=== PATIENT | female | born 1955 | race Caucasian/White ===

== ENCOUNTER 2025-03-08 14:38 | Observation (INO) ==
--- NOTE | 2025-03-08 15:05 | Emergency Department Note ---
Impression & Plan Unstable angina, Abnormal stress electrocardiogram test using treadmill, Hypertriglyceridemia, Hyperlipidemia ED Provider Note NAME: CHERRIE WONG AGE: 69 SEX: F : 1955 ARRIVES VIA: Walk-In INFORMANT: Patient, ED PROVIDER(S): Brian Drake DO CHIEF COMPLAINT: chest pain HPI: This is a 69-year-old female with the PMHx of recent chest pain presenting to [facility] for further evaluation of abnormal stress test. Patient is accompanied by who provide additional history. Patient had a stress test today with the [facility] cardiology that was abnormal. She was sent directly to the emergency department. Patient complains of a few weeks of left-sided chest pain. She reports associated with mild nausea and gain. She states this is mild shortness of breath as well. She states this feels like a elephant sitting on her chest. Appears the patient took approximately 11 minutes to resolution of her symptoms as well as EKG changes during stress test today. Patient is planning for cardiac catheterization. They deny fever or chills. No cough or congestion. Denies chest palpitations. They deny abdominal pain and vomiting. No urinary complaints. No recent changes in bowel movements. Patient denies recent changes in medications or OTC supplements. with patient does have significant family history for cardiovascular disease. She has a did have a prior cardiac catheterization approximately 30 years ago. This was reported as normal. Patient offers no other complaints, today. ADDITIONAL HISTORY OBTAINED: Per HPI Chronic Medical/Social Conditions Affecting Care: Per HPI PAST MEDICAL HISTORY: See Below PAST SURGICAL HISTORY: See Below FAMILY HISTORY: See Below SOCIAL HISTORY: See Below HOME MEDICATIONS: See Below ALLERGIES: See Below VITALS: See Below PHYSICAL EXAMINATION: GENERAL: Sitting up in bed, alert, well appearing, well nourished, no distress, non-toxic EYE EXAM: normal conjunctiva. PERRL and EOM's grossly intact. OROPHARYNX: no exudate, no erythema, lips, buccal mucosa, and tongue normal and mucous membranes are moist NECK: supple, no nuchal rigidity, no adenopathy, non-tender LUNGS: Clear to auscultation. Normal chest wall mechanics HEART: no murmurs, regular rate, regular rhythm, 2+ distal pulses in 4/4 extremities, warm and well perfused ABDOMEN: abdomen soft, non-tender, no masses, no rebound or guarding. BACK: Back is symmetrical on inspection and there is no deformity, no midline tenderness, no CVA tenderness. SKIN: no rashes and no bruising UPPER EXTREMITIES: upper extremities are grossly normal. LOWER EXTREMITIES: No pitting edema. NEURO EXAM: Normal sensorium, GCS 15, normal speech, no gross weakness of arms, no gross weakness of legs. MEDICAL DECISION MAKING: Differential diagnoses includes but not limited to ACS, stable vs unstable angina, dysrhythmia, viral URI, pneumonia, pericarditis, pneumothorax, costochondritis, MSK strain, PE, hypertensive emergency, psychological causes, esophageal reflux, gastritis In summary, this is a 69 year old female who presented with chest pain. Differential as above. Nursing notes and pertinent past medical records reviewed. Vital signs reviewed and the patient is afebrile hemodynamically stable. History and presentation revealed ongoing chest pain for the last 4 weeks. She does have exertional symptoms. Associated with mild dyspnea as well as nausea. Extensive family history of cardiac disease. I reviewed documentation from today's cardiology visit. It appears the patient had an abnormal stress test. Patient had significant depressions and ST segment changes to suggest lateral ischemia. Patient is planned for cardiac catheterization today with Dr. Montalvo but insurance declined. Physical examination revealed as above. As a result of my initial evaluation, we will plan to initiate lab work as well as a chest x-ray. Plan for ASA load. Will provide sublingual nitroglycerin for pain control. Diagnostics interpreted by me include EKG and cardiac monitoring as listed below: -Cardiac Monitoring: An order was placed for continuous cardiac monitoring. The monitor shows a rate of 40-70s with regular rhythm. -ECG: EKG independently interpreted by me reveals normal sinus rhythm at a ventricular rate of [address] segment changes to suggest STEMI. There is an incomplete right bundle branch block present. QTc is 431 ms. Patient completed laboratory studies and imaging. Patient was discussed with cardiology [facility] cloth sponger. Per Dr. Barth, classic EKG changes and chest pain during stress test. Unfortunately, the insurance company declined catheterization. Plan for admission for intractable. No heparin bolus or gtt needed. The patient was managed with ASA load. SL NTG used for chest pain but she became transiently hypotensive and symptomatic. Chest pain did improve. Will hold on further SL NTG. IVFR ordered. BP improved rapidly. No significant leukocytosis or anemia. Patient does have mild hypokalemia. This was replenished by oral potassium chloride. Lipid panel shows hypertriglyceridemia as well as high cholesterol. Patient would likely benefit from statin initiation. CXR independently interpreted by me reveals no evidence of focal consolidation to suggest pna. No large pneumothorax or pleural effusion. Troponin and EKG are reassuring. Ultimately, the decision was made to admit the patient for ACS. It was recommended to admit this patient at 1549. I discussed the case with the hospitalist service via telephone/Tiger[employer] and they are agreeable to admit the patient to their services. The patient was taken directly to cardiac catheterization after ?insurance approval. Further care deferred to cardiology and medicine teams. Based on the above, including the patient's age, coexisting illnesses, labs, imaging, and exam findings the decision to treat as an inpatient. I discussed the patient with the hospitalist team who recommended admission to their services. They received the medications, treatments, interventions indicated above and their condition remained guarded. I discussed my findings with the patient and their family and they understand and agree with the treatment plan. All patient / family questions were answered to their satisfaction. Consults/Care Managements Discussions: Per [facility] ER treatment provided: See above Procedures:none Critical Care: None The chart was completed utilizing [employer] Speech voice recognition software. Grammatical errors, random word insertions, pronoun errors, and incomplete sentences are an occasional consequence of this system due to software limitations, ambient noise, and hardware issues. Any formal questions or concerns about the content, text, or information contained within the body of this dictation should be directly addressed to the physician for clarification. Past Med/Surg History Problem List (Updated 03/08/25 @ 17:43 by Brian Drake DO) Hyperlipidemia (Acute) Hypertriglyceridemia (Acute) Dyslipidemia Unstable angina (Acute) Abnormal stress electrocardiogram test using treadmill (Acute) Chest pressure Surgical History S/P hysterectomy S/P wisdom tooth extraction Family History Father Stroke Hypertension Mother Diabetes Brother Diabetes Denies family history of Ovarian cancer Prostate cancer Myocardial infarction Breast cancer Colorectal cancer Social History Smoking Status: Never smoker Second Hand Exposure: No; Do You Dip or Chew Tobacco: No; Hx Alcohol Use: Yes Alcohol type: wine and hard liquor Alcohol Intake Frequency: 4 or More x per/Week Hx Substance Use: No Preferred Language: Pashto Communication Ability: Effective Visual Impairment: No Limitations Hearing Ability: Hard of Hearing Medical Voucher Clerk Required: No Beliefs That Will Affect Care: None marital status: Current Living Situation: Spouse current occupational status: retired Feels Safe at Home: Yes Childhood Exposure to Second-Hand Smoke: No Diet: gluten free and regular caffeine: Yes Dental Care, Regularly: Yes Physical Activity Frequency: 5-6 Times per Week Seatbelt Use: always Sunscreen Use: No Assistive Devices: None Allergies Allergies Allergy/AdvReac Type Severity Reaction Status Date / Time Penicillins Allergy Hives Verified 03/08/25 16:40 Home Meds Home Medications Medication Instructions Recorded Confirmed No Known Home Medications 09/11/24 03/08/25 Previous Rx's Medication Instructions Recorded amlodipine 5 mg tablet 5 mg PO QAM #30 tabs 03/08/25 aspirin 81 mg tablet,delayed 81 mg PO QAM #30 tabs 03/08/25 release atorvastatin 20 mg tablet 20 mg PO QAM #30 tabs 03/08/25 Results & Data (ED) Vital Signs Vital Signs - 24 hr 03/08/25 14:47 03/08/25 15:16 03/08/25 15:32 Temperature 36.7 C Temperature Source Oral Pulse Rate 73 72 Pulse Rate [Apical] 47 L Pulse Rhythm [Apical] Pulse Strength [Apical] Respiratory Rate 18 18 Respiratory Effort / Characteristics Non-Labored Spontaneous Non-Labored Spontaneous Respiratory Depth Normal Normal Respiratory Pattern Regular Blood Pressure 153/76 H Blood Pressure [Left Arm] Blood Pressure [Right Arm] 64/34 L Blood Pressure Mean 101 Blood Pressure Mean [Left Arm] Blood Pressure Mean [Right Arm] 44 Blood Pressure Position [Left Arm] Pulse Oximetry 97 95 Oxygen Delivery Method Room Air Room Air Sepsis Recent Fever Within 48 Hours No Sepsis New/Unexplained Change in Mental Status N/A Sepsis Action Taken by Nursing No Action Required 03/08/25 15:33 03/08/25 15:36 03/08/25 15:41 Temperature Temperature Source Pulse Rate Pulse Rate [Apical] 58 L 62 66 Pulse Rhythm [Apical] Pulse Strength [Apical] Respiratory Rate 18 18 18 Respiratory Effort / Characteristics Non-Labored Spontaneous Non-Labored Spontaneous Non-Labored Spontaneous Respiratory Depth Normal Normal Normal Respiratory Pattern Regular Regular Blood Pressure Blood Pressure [Left Arm] 72/48 L 89/62 L 114/71 Blood Pressure [Right Arm] Blood Pressure Mean Blood Pressure Mean [Left Arm] 56 71 85 Blood Pressure Mean [Right Arm] Blood Pressure Position [Left Arm] Sitting Pulse Oximetry 96 95 95 Oxygen Delivery Method Room Air Room Air Room Air Sepsis Recent Fever Within 48 Hours Sepsis New/Unexplained Change in Mental Status Sepsis Action Taken by Nursing 03/08/25 16:10 03/08/25 16:36 Temperature 36.6 C Temperature Source Oral Pulse Rate 80 Pulse Rate [Apical] 76 Pulse Rhythm [Apical] Regular Pulse Strength [Apical] Normal Respiratory Rate 24 18 Respiratory Effort / Characteristics Non-Labored Spontaneous Respiratory Depth Normal Respiratory Pattern Regular Blood Pressure 150/113 H Blood Pressure [Left Arm] 145/78 H Blood Pressure [Right Arm] Blood Pressure Mean Blood Pressure Mean [Left Arm] 100 Blood Pressure Mean [Right Arm] Blood Pressure Position [Left Arm] Lying Pulse Oximetry 98 97 Oxygen Delivery Method Room Air Room Air Sepsis Recent Fever Within 48 Hours Sepsis New/Unexplained Change in Mental Status Sepsis Action Taken by Nursing Laboratory Data 03/08/25 15:06 03/08/25 15:06 Lab Results 03/08/25 Range/Units 15:06 WBC 9.22 (4.8-10.8) K/ul RBC 5.21 (4.20-5.40) M/uL Hgb 14.4 (12.0-16.0) g/dl Hct 43.2 (37.0-47.0) % MCV 82.9 (80.0-100.0) fL MCH 27.6 (25.0-34.0) pg MCHC 33.3 (32.0-36.0) g/dL RDW Std Deviation 37.0 (36.4-46.3) fL RDW Coeff of Mariama 12.2 (11.5-14.5) % Plt Count 295 (130-400) K/uL MPV 9.5 (9.4-12.4) fL Immature Gran % (Auto) 0.5 % Neut % (Auto) 51.2 % Lymph % (Auto) 38.3 % Payette % (Auto) 7.3 % Eos % (Auto) 2.0 % Baso % (Auto) 0.7 % Neut # (Auto) 4.73 (1.40-6.50) K/uL Lymph # (Auto) 3.53 H (1.20-3.40) K/uL Payette # (Auto) 0.67 H (0.11-0.59) K/uL Eos # (Auto) 0.18 (0.00-0.50) K/uL Baso # (Auto) 0.06 (0.00-0.20) K/uL Immature Gran # (Auto) 0.05 (0.01-0.20) K/uL PT 10.3 (9.0-12.0) Seconds INR 0.9 (0.9-1.1) APTT 26 (21-31) Seconds PTT Ratio 1.0 Sodium 138 (136-145) mmol/L Potassium 3.3 L (3.5-5.1) mmol/L Chloride 100 (98-107) mmol/L Carbon Dioxide 30 (21-32) mmol/L Anion Gap 8 (3-11) BUN 14 (6-23) mg/dl Creatinine 0.77 (0.6-1.2) mg/dl Est Cr Clr Drug Dosing 72.2 ml/min eGFR 82.93 BUN/Creatinine Ratio 18.2 (10-20) Glucose 115 H (70-99(Fasting)) mg/dl Calcium 9.5 (8.6-10.3) mg/dl Total Bilirubin 0.5 (0.2-1.0) mg/dl AST 22 (13-39) U/L ALT 22 (7-52) U/L Alkaline Phosphatase 93 (34-104) U/L Troponin I High Sens 9.1 (0-14) pg/ml Total Protein 7.7 (6.0-8.3) gm/dl Albumin 4.6 (3.4-5.0) gm/dl Globulin 3.1 (2.5-4.0) gm/dl Albumin/Globulin Ratio 1.5 (0.9-2) Triglycerides 304 H (0-150) mg/dl Cholesterol 266 H (0-200) mg/dl LDL Cholesterol Direct 155 mg/dl LDL Cholesterol, Calc 149 mg/dl VLDL Cholesterol, Calc 61 H (0-30) mg/dl HDL Cholesterol 56 mg/dl Cholesterol/HDL Ratio 4.8 (0-5) Lipase 10 L (11-82) U/L Administered Medications Discontinued Medications Aspirin (Aspirin Chew 324 Mg) 324 mg PO NOW STA Stop: 03/08/25 15:03 Last Admin: 03/08/25 15:20 Dose: 324 mg Documented By: MR Fentanyl Citrate (Fentanyl Citrate Pf 100 Mcg/2 Ml Vial) Confirm Administered Dose 100 mcg .ROUTE .STK-MED ONE Stop: 03/08/25 17:20 Last Increment: 03/08/25 18:06 Dose: 50 mcg Documented By: [id number] Heparin Sodium (Porcine) (Heparin (Porcine) 1000 Unit/Ml 10 Ml (Public Health Nutritionist Use Only)) Confirm Administered Dose 10,000 units .ROUTE .STK-MED ONE Stop: 03/08/25 17:20 Last Admin: 03/08/25 18:06 Dose: 5,000 units Documented By: [id number] Heparin Sodium/Sodium Chloride (Heparin In Nss Infusion 1000 Unit/500 Ml (2 U/Ml) Bag) Confirm Administered Dose 3,000 units IV .STK-MED ONE Stop: 03/08/25 17:20 Last Admin: 03/08/25 17:46 Dose: 3,000 units Documented By: HIREN Sodium Chloride (Nss) 1,000 mls @ 999 mls/hr IV .Q1H1M ONE Stop: 03/08/25 16:36 Last Infusion: 03/08/25 18:43 Dose: Infused Documented By: Admin: 03/08/25 15:39 Dose: 999 mls/hr Documented By: TR Iodixanol (Iodixanol (Visipaque) 320 Mg/Ml 100ml) Confirm Administered Dose 1 ml IV .STK-MED ONE Stop: 03/08/25 17:21 Last Admin: 03/08/25 17:48 Dose: Not Given Documented By: [id number] Ioversol (Optiray 350) Confirm Administered Dose 1 ml .ROUTE .STK-MED ONE Stop: 03/08/25 17:21 Last Admin: 03/08/25 18:07 Dose: 80 ml Documented By: HIREN Midazolam HCl (Midazolam Hcl 1 Mg/Ml 2ml Vial) Confirm Administered Dose 2 mg .ROUTE .STK-MED ONE Stop: 03/08/25 17:20 Last Admin: 03/08/25 18:06 Dose: 2 mg Documented By: [id number] Nicardipine HCl (Nicardipine 2,000 Mcg/20 Ml Syr) Confirm Administered Dose 2,000 mcg .ROUTE .STK-MED ONE Stop: 03/08/25 17:21 Last Admin: 03/08/25 17:47 Dose: 2,000 mcg Documented By: HIREN Nitroglycerin (Nitroglycerin Sl 0.4 Mg/Tab Tab) 0.4 mg SL Q5M PRN PRN Reason: Chest Pain Stop: 04/07/25 15:04 Last Admin: 03/08/25 15:21 Dose: 0.4 mg Documented By: MR Nitroglycerin/Dextrose (Nitroglycerin/D5w 100mcg/Ml 20ml Syr) Confirm Administered Dose 2,000 mcg .ROUTE .STK-MED ONE Stop: 03/08/25 17:21 Last Admin: 03/08/25 17:47 Dose: 2,000 mcg Documented By: HIREN Potassium Chloride (Potassium Chloride Crtab 20 Meq Tabcr) 40 meq PO NOW STA Stop: 03/08/25 15:47 Last Admin: 03/08/25 15:56 Dose: 40 meq Documented By: TDM Imaging Data Radiologist's Impression: Chest X-Ray 03/08/25 15:02 XR chest 1V portable CLINICAL HISTORY: Chest pain, nonspecific COMPARISON STUDY: None FINDINGS: Heart size and pulmonary vasculature are normal. No consolidation or pleural effusion. No pneumothorax. IMPRESSION: No acute findings. ACT 112: Negative or not required by law. Electronically signed by: Harvey Ayala M.D. 03/08/2025 4:06 PM Discharge Plan Visit Data Chief Complaint: Chest Pain Stated Complaint: CHEST PAIN ED Provider: Brian Drake Discharge Problem: Unstable angina, Abnormal stress electrocardiogram test using treadmill, Hypertriglyceridemia, Hyperlipidemia Patient Disposition: Admitted As Inpatient Condition: Fair Discharge Instructions Interventions: ED Discharge Assessment Last Done: 03/08/25 16:10
[2025-03-08] MEDS ORDERED: TICAGRELOR 90 MG TAB PO ONE (15:09)
[2025-03-08] MEDS: ASPIRIN CHEW 324 MG PO STA (15:20)
[2025-03-08] MEDS: NITROGLYCERIN SL 0.4 MG/TAB TAB SL PRN (15:21)
[2025-03-08 15:24] LABS: Hematocrit (blood only) 43.2 % (37.0-47.0); Hemoglobin 14.4 g/dl (12.0-16.0); Immature Granulocytes # (auto) 0.05 K/uL (0.01-0.20); Immature Granulocytes % (auto) 0.5 %; Mean Corpuscular Hemoglobin 27.6 pg (25.0-34.0); Mean Corpuscular Volume 82.9 fL (80.0-100.0); Platelet Count 295 K/uL (130-400); RDW Standard Deviation 37.0 fL (36.4-46.3); Red Blood Count 5.21 M/uL (4.20-5.40); White Blood Count 9.22 K/ul (4.8-10.8)
[2025-03-08] MEDS: SODIUM CHLORIDE 0.9% 1,000 ML IV ONE (15:39)
[2025-03-08 15:42] LABS: Alanine Aminotransferase 22.0 U/L (7-52); Albumin Globulin Ratio 1.5 (0.9-2); Alkaline Phosphatase 93.0 U/L (34-104); Anion Gap 8.0 (3-11); Bilirubin,Total 0.5 mg/dl (0.2-1.0); Blood Urea Nitrogen 14.0 mg/dl (6-23); Calcium 9.5 mg/dl (8.6-10.3); Carbon Dioxide 30.0 mmol/L (21-32); Chloride 100.0 mmol/L (98-107); Cholesterol 266.0 mg/dl (0-200); Creatinine Clr Calc Pharmacy 72.2 ml/min; Globulin 3.1 gm/dl (2.5-4.0); Glucose 115.0 mg/dl (70-99(Fasting)); HDL Cholesterol 56.0 mg/dl; Lipase 10.0 U/L (11-82); Potassium 3.3 mmol/L (3.5-5.1); Sodium 138.0 mmol/L (136-145); Total Protein 7.7 gm/dl (6.0-8.3); Triglycerides 304.0 mg/dl (0-150)
[2025-03-08 15:53] LABS: INR 0.9 (0.9-1.1); Partial Thromboplastin Time 26 Seconds (21-31); Prothrombin Time 10.3 Seconds (9.0-12.0)
[2025-03-08] MEDS: POTASSIUM CHLORIDE CRTAB 20 MEQ TABCR PO STA (15:56)
--- NOTE | 2025-03-08 16:04 | Electrocardiogram Report ---
Test Reason : Blood Pressure : */* mmHG Vent. Rate : 72 BPM Atrial Rate : 72 BPM P-R Int : 170 ms QRS Dur : 94 ms QT Int : 394 ms P-R-T Axes : -5 48 6 degrees QTcB Int : 431 ms Normal sinus rhythm Incomplete right bundle branch block Borderline ECG No previous ECGs available Confirmed by Trevin Barth ([id number]) on 03/08/2025 4:03:48 PM Referred By: Confirmed By: Trevin Barth
--- NOTE | 2025-03-08 16:07 | XRay Report ---
XR chest 1V portable CLINICAL HISTORY: Chest pain, nonspecific COMPARISON STUDY: None FINDINGS: Heart size and pulmonary vasculature are normal. No consolidation or pleural effusion. No p neumothorax. IMPRESSION: No acute findings. ACT 112: Negative or not required by law. Electronically signed by: Harvey Ayala M.D. 03/08/2025 4:06 PM
--- NOTE | 2025-03-08 16:36 | History & Physical Report ---
Date of Service March 08, 2025 Assessment & Plan (1) Unstable angina: (2) Dyslipidemia: Plan 69 F with chest pain and abnormal stress test Pt taken emergently to the Cardiac porcelain enamel laborer, patient had nonocclusive coronary artery disease. compound machine operator feels this may be related to vasospasm. He is recommending aspirin amlodipine and atorvastatin. I educated the patient post procedure regarding these medications and side effects of these medications and she is agreeable. She wishes for medication to be sent to her pharmacy. Once stable patient be discharged more facility. History of Present Illness Primary Care Provider: Flaco Ponce DO 69 year old female without any significant medical history who has been experiencing chest pressure/tightness over the past 2.5 to 3 weeks. She describes a chest tightness brought on by emotional stress as there has been a lot going on in her life and her family life, traveling, visiting family etc. She saw her PCP and he ordered a treadmill stress test 03/08/25 her EKG response to exercise was grossly abnormal. Initial EKG showed a normal sinus rhythm at 79 bpm. At 4 minutes and 30 seconds she developed upsloping ST segment depression in the inferolateral leads, shortly thereafter she developed chest tightness which persisted throughout her time on the treadmill and persisted for approximately 6 of recovery. During recovery her ST segment depressions briefly became horizontal before becoming downsloping ST segment depression most pronounced in the lateral leads. ST segments depression persisted for 11 minutes in recovery before normalizing. Patient denies any radiation of her chest tightness/pressure and she denies any associated symptoms -- specifically denying any associated nausea, vomiting, diaphoresis, or dyspnea. She has not had any prolonged episodes of chest pressure/tightness or any episodes at rest. . Her cholesterol status is elevated She is taken to the porcelain enamel laborer 03/08/[address] Grady Montalvo. Allergies Allergy/AdvReac Type Severity Reaction Status Date / Time Penicillins Allergy Hives Verified 03/08/25 16:40 Home Medications Medication Instructions Recorded Confirmed Type No Known Home Medications 09/11/24 03/08/25 History Past Med/Surg History Problem List (Updated 03/08/25 @ 17:43 by Brian Drake DO) Hyperlipidemia (Acute) Hypertriglyceridemia (Acute) Dyslipidemia Unstable angina (Acute) Abnormal stress electrocardiogram test using treadmill (Acute) Chest pressure Surgical History S/P hysterectomy S/P wisdom tooth extraction Family History Father Stroke Hypertension Mother Diabetes Brother Diabetes Denies family history of Ovarian cancer Prostate cancer Myocardial infarction Breast cancer Colorectal cancer Social History Smoking Status: Never smoker Second Hand Exposure: No; Do You Dip or Chew Tobacco: No; Tobacco Cessation Education Requested by Patient: No Hx Alcohol Use: Yes Alcohol type: wine and hard liquor Alcohol Intake Frequency: 4 or More x per/Week Hx Substance Use: No Preferred Language: Nauruan Communication Ability: Effective Visual Impairment: No Limitations Hearing Ability: Hard of Hearing Behavior Analyst Required: No Beliefs That Will Affect Care: None marital status: Current Living Situation: Spouse current occupational status: retired Other Information That Helps Us Care for You: No Feels Safe at Home: Yes Safety Concerns: Feels Safe At This Time Childhood Exposure to Second-Hand Smoke: No Diet: gluten free and regular caffeine: Yes Dental Care, Regularly: Yes Physical Activity Frequency: 5-6 Times per Week Seatbelt Use: always Sunscreen Use: No Assistive Devices: None Physical Exam Physical Exam: Patient awake alert appropriate. No further chest pain . Card exam is regular without murmurs lungs are clear the wheezes or crackles Right wrist still has IT band in place there is good distal sensation Extremities are without edema Results & Data Results & Data Vital Signs (Past 12 Hours) Vital Signs Temp Pulse Pulse Resp BP BP BP 03/08/25 16:10 80 24 150/113 H 03/08/25 15:41 66 18 114/71 03/08/25 15:36 62 18 89/62 L 03/08/25 15:33 58 L 18 72/48 L 03/08/25 15:32 47 L 18 64/34 L 03/08/25 15:16 72 03/08/25 14:47 98.1 F 73 18 153/76 H Pulse Ox O2 Del Method 03/08/25 16:10 98 Room Air 03/08/25 15:41 95 Room Air 03/08/25 15:36 95 Room Air 03/08/25 15:33 96 Room Air 03/08/25 15:32 95 Room Air 03/08/25 15:16 03/08/25 14:47 97 Room Air Laboratory Results Reviewed laboratories discussed case extensively with Dr. Montalvo PG Care Time/CCT Total # of Minutes Spent Total Time Spent with Patient: Total time spent is greater than 50% in coordination of care (as documented) at patient's floor/unit and/or counseling patient: Coding Level of Care Code None Diagnoses Unstable angina I20.0 Dyslipidemia E78.5
--- NOTE | 2025-03-08 17:09 | Pre Anesthesia Assessment ---
Date of Service March 08, 2025 Pre Sedation Assessment Vital Signs Temp Pulse Pulse Resp BP BP BP 03/08/25 16:36 98 F 76 18 145/78 H 03/08/25 16:10 80 24 150/113 H 03/08/25 15:41 66 18 114/71 03/08/25 15:36 62 18 89/62 L 03/08/25 15:33 58 L 18 72/48 L 03/08/25 15:32 47 L 18 64/34 L 03/08/25 15:16 72 03/08/25 14:47 98.1 F 73 18 153/76 H Pulse Ox O2 Del Method 03/08/25 16:36 97 Room Air 03/08/25 16:10 98 Room Air 03/08/25 15:41 95 Room Air 03/08/25 15:36 95 Room Air 03/08/25 15:33 96 Room Air 03/08/25 15:32 95 Room Air 03/08/25 15:16 03/08/25 14:47 97 Room Air Cardiovascular + regular rate Respiratory + respiratory effort normal Pre-Sedation Airway Assessment Smoking Status: Never smoker Hx Sleep Apnea: No Short, Thick Neck: No Thyromental Distance: > or= 3.5 Finger Breadths Oral Cavity: + WNL Mallampati Class: III ASA: ASA3 Procedure Planning Contraindications for Sedation: none Current Medications Reviewed: Yes Notes The planned sedation has been discussed with the patient. Informed Consent was obtained. I have identified the patient, determined the appropriateness of sedation and have assessed the patient immediately prior to the procedure. All medicine(s) and interventions are by my order.
[2025-03-08] MEDS: NITROGLYCERIN/D5W 100MCG/ML 20ML SYR ONE (17:47)
[2025-03-08] MEDS: niCARdipine 2,000 MCG/20 ML SYR ONE (17:47)
[2025-03-08] MEDS: IODIXANOL (VISIPAQUE) 320 MG/ML 100ML IV ONE (17:48)
[2025-03-08] MEDS: MIDAZOLAM HCL 1 MG/ML 2ML VIAL ONE (18:06)
[2025-03-08] MEDS: HEPARIN (PORCINE) 1000 UNIT/ML 10 ML (CATH LAB USE ONLY) ONE (18:06)
[2025-03-08] MEDS: OPTIRAY 350 ONE (18:07)
--- NOTE | 2025-03-08 18:29 | Post Anesthesia Assessment ---
Date of Service March 08, 2025 Post Sedation Assessment Vital Signs Temp Pulse Pulse Resp BP BP BP 03/08/25 16:36 98 F 76 18 145/78 H 03/08/25 16:10 80 24 150/113 H 03/08/25 15:41 66 18 114/71 03/08/25 15:36 62 18 89/62 L 03/08/25 15:33 58 L 18 72/48 L 03/08/25 15:32 47 L 18 64/34 L 03/08/25 15:16 72 03/08/25 14:47 98.1 F 73 18 153/76 H Pulse Ox O2 Del Method 03/08/25 16:36 97 Room Air 03/08/25 16:10 98 Room Air 03/08/25 15:41 95 Room Air 03/08/25 15:36 95 Room Air 03/08/25 15:33 96 Room Air 03/08/25 15:32 95 Room Air 03/08/25 15:16 03/08/25 14:47 97 Room Air Recovery Score Activity: Moves 4 extremities Respiration: Deep Breath/Cough Circulation: +/-20% PreAnes Value Oxygen Saturation: > 92% On Room Air Discharge Sedation Level of Care: Fast Track Phase II
--- NOTE | 2025-03-08 19:00 | Cardiac Catheterization ---
[facility] Data: User Experience Team Lead Cardiac Status Clinical evaluation leading to the procedure CAD Presenation: Positive Stress Test Diagnostic Physicians Name: Grady Montalvo MD Closure Device Recommendations: Medical Therapy and/or Counseling Cardiac Cath Procedure Full Procedure Date March 08, 2025 Pre-Procedure Diagnosis Pre-Procedure Diagnosis: Positive Stress Test AUC Score AUC Score: 7 Post-Procedure Diagnosis Post-Procedure Diagnosis: Moderate CAD and Normal Intracardiac Pressures Procedure(s) Performed Procedure(s) Performed: Coronary Angiography, Left Heart Cath and Fractional Flow [place] [employer] Advisor Grady Montalvo MD Semi Automatic Sewing Machine Operator(s) Showers Estimated Blood Loss Estimated Blood Loss: 15 Medication(s) Medication(s): Fentanyl, Heparin, Lidocaine 1%, Nicardipine, Nitroglycerin and Versed Summary of Findings Indication: Positive stress test Access: 6Fr right radial artery Catheters: [place], EBU 3.0 guide Findings: LM - Normal caliber, no significant disease LAD -medium caliber, 20-30% proximal to mid disease, 50% mid segment disease, distal vessel small and tapers prior to apex. Large D3 functions more as distal LAD and is without significant disease. Circumflex -medium caliber, no significant disease. High OM1 without disease. RCA -dominant, large caliber, angiographically normal. Gives off large RPDA and PLB without significant disease. LVEDP -11 IFR of mid LAD Left main cannulated with EBU 3.0 guide Omniwire normalized and navigated across mid LAD stenosis into large D3 IFR 0.95 Wire removed and post procedure angiography revealed no complications. Arterial Closure: TR band Summary: 1. Moderate nonobstructive coronary artery disease - 50% mid LAD (negative IFR 0.95). 2. Normal intracardiac filling pressure Recommendations: Patient with significant ST abnormalities on exercise treadmill test extending in the recovery and associated with chest pain. Findings consistent with INOCA likely secondary to coronary vasospasm or microvascular dysfunction Did not tolerate nitrate with symptoms and recommend trial of calcium channel bridget (amlodipine 5). Recommend ASCVD secondary prevention including aspirin, statin. Follow-up with [facility]/Dr. Barth Hemodynamics Rest Ao:: 118/64/88 Final Ao: 135/63/25 LV: 127/11 Recommendations Recommendations: Medical Therapy and/or Counseling Radiation Exposure (mGy) 555 Contrast (mls) 80 Anesthesia Moderate [id number] Procedural Complication(s) None Disposition User Experience Team Lead Holding/Recovery I attest to the content of the Intraoperative Record and any orders documented therein. Any exceptions are noted below. [facility] Card Cath Procedure Codes Cardiac Catheterization Procedure 1: Cardiovascular Cath Procedures: 29728 Coronaries and LHC (+/-LV) Procedure 2: Cardiovascular Cath Procedures: 91955 (Doppler) Pressure Wire Moderate Sedation Procedure 1: Sedation/Anesthesia: 93551 Mod Sedation by the same physician;Init15 Min Child Age 5 & Up PG Care Time/CCT Total # of Minutes Spent Total Time Spent with Patient: Total time spent is greater than 50% in coordination of care (as documented) at patient's floor/unit and/or counseling patient:
--- NOTE | 2025-03-08 19:28 | Discharge Summary ---
Discharge Summary Date of Service March 08, 2025 Principal Dx & Hospital Course #1 = Principal Diagnosis (1) Unstable angina: (2) Dyslipidemia: Plan 69 F with chest pain and abnormal stress test Pt taken emergently to the Cardiac corn lab technician, patient had nonocclusive coronary artery disease. automatic buffing wheel former feels this may be related to vasospasm. He is recommending aspirin amlodipine and atorvastatin. I educated the patient post procedure regarding these medications and side effects of these medications and she is agreeable. She wishes for medication to be sent to her pharmacy. Once stable patient be discharged more facility. Notes For Next Care Provider Patient is wary about medications and not clear of her compliance we will choose amlodipine at this time to reduce vasospasm resume antianginal atorvastatin will start at 39 her lipid panel was unfavorable with a LDL of 155. Likely she will need follow-up labs with regard to this Admission HPI Per Admitting Provider 69 year old female without any significant medical history who has been experiencing chest pressure/tightness over the past 2.5 to 3 weeks. She describes a chest tightness brought on by emotional stress as there has been a lot going on in her life and her family life, traveling, visiting family etc. S he saw her PCP and he ordered a treadmill stress test 03/08/25 her EKG response to exercise was grossly abnormal. Initial EKG showed a normal sinus rhythm at 79 bpm. At 4 minutes and 30 seconds she developed upsloping ST segment depression in the inferolateral leads, shortly thereafter she developed chest tightness which persisted throughout her time on the treadmill and persisted for approximately 6 of recovery. During recovery her ST segment depressions briefly became horizontal before becoming downsloping ST segment depression most pronounced in the lateral leads. ST segments depression persisted for 11 minutes in recovery before normalizing. Patient denies any radiation of her chest tightness/pressure and she denies any associated symptoms -- specifically denying any associated nausea, vomiting, diaphoresis, or dyspnea. She has not had any prolonged episodes of chest pressure/tightness or any episodes at rest. . Her cholesterol status is elevated She is taken to the corn lab technician 03/08/[address] Grady Montalvo. Discharge Exam Patient stable seen post procedure Discharge Plan Discharge Items Patient Disposition: Home - Self-Care Reason For Visit: UNSTABAL ANGINA Discharge Diagnosis: Chest pain coronary artery vasospasm Activity: Per Instructions section Activity Comment: See below for limitations after procedure Non-emergency contact: Primary Care Provider Call non-emergency contact if: your symptoms worsen Follow-up/Referrals: Laz Christianson, [Physician] - Diet: Heart Healthy Addtl Attending Provider Instructions: ACTIVITY RECOMMENDATIONS: Excess manipulation of the wrist should be avoided for the next 24-48 hours. * No lifting over 2 pounds (approximately a 1/2 gallon of milk) with the utilized arm for 24 hours. * No strenuous activity such as bowling or tennis for 3 days. * Keep the site of the procedure covered with a bandage for 24 hours. *You may shower the day after the procedure. Do not take a tub bath or submerge the puncture site in water for the next 3 days. *Do not operate any motorized equipment for 3 days. SPECIAL CARE INSTRUCTIONS: The site may be slightly bruised and sore following your procedure. Should any of the following occur, contact the Dr. who performed your procedure. 1. Redness/inflammation, swelling, chills, or fever, or colored drainage at procedure site within 3-7 days after your procedure. 2. Coldness, discoloration, ongoing numbness, severe pain, or swelling. Expect mild tingling of hand and tenderness at the puncture site for up to three days. If this persists beyond three days, or other symptoms develop, notify the Dr. who performed your procedure. BLEEDING: If the procedure site on your wrist begins to bleed, do not panic 1. Place 1 or 2 fingers firmly just slightly above the insertion site to stop the bleeding. You may be able to feel your pulse as you hold pressure. 2. Lift your finger after 5 minutes to see if the bleeding has stopped. 3. Once the bleeding has stopped, gently wipe the wrist area clean with a bandage. * If the bleeding from your wrist does not stop after 10 minutes, or if there is a large amount of bleeding or spurting, call 911 (do not drive yourself to the hospital). SKIN IRRITATION: * You may experience some redness and/or swelling in the area where radiation was administered. If any skin irritation occurs, please contact your family physician. FOLLOW UP VISIT: Keep any scheduled doctor appointments. Pending Studies at Discharge: No Stand-Alone Forms: My Promise[employer], Smoking Cessation Medications and DC Order Prescriptions: New atorvastatin 20 mg Tablet 20 mg PO QAM Qty: 30 3RF amlodipine 5 mg Tablet 5 mg PO QAM Qty: 30 3RF aspirin 81 mg Tablet,Delayed Release (Dr/Ec) 81 mg PO QAM Qty: 30 11RF No Action No Known Home Medications Discharge Orders: Discharge Order (Routine); Ordered 03/08/25 Ordered By: Alberto Leon Admission Data Admit Date/Time: 03/08/25 17:00 Attending Provider: Grady Montalvo Admit Provider: Alberto Leon Primary Care Provider: Flaco Ponce Other Providers: Trent Rust Brian W Hospital Stay Data Consultations 03/08/25 15:51 ED Decision to Admit Stat 03/08/25 18:00 Consult Hydro Excavation Operator Routine Procedures Performed Operation Date: 03/08/25 16:15 Actual Procedures p Cineradiography w/Routine Exam - Grady Montalvo MD p Cath, Left with Cors and Vent - Grady Montalvo MD Diagnostic Imagining Performed 03/08/25 17:18 CL Cath Imgs for PACS use only Routine Discharge Instructions Given to Patient (Per Discharging Provider) ACTIVITY RECOMMENDATIONS: Excess manipulation of the wrist should be avoided for the next 24-48 hours. * No lifting over 2 pounds (approximately a 1/2 gallon of milk) with the utilized arm for 24 hours. * No strenuous activity such as bowling or tennis for 3 days. * Keep the site of the procedure covered with a bandage for 24 hours. *You may shower the day after the procedure. Do not take a tub bath or submerge the puncture site in water for the next 3 days. *Do not operate any motorized equipment for 3 days. SPECIAL CARE INSTRUCTIONS: The site may be slightly bruised and sore following your procedure. Should any of the following occur, contact the DrElie who performed your procedure. 1. Redness/inflammation, swelling, chills, or fever, or colored drainage at procedure site within 3-7 days after your procedure. 2. Coldness, discoloration, ongoing numbness, severe pain, or swelling. Expect mild tingling of hand and tenderness at the puncture site for up to three days. If this persists beyond three days, or other symptoms develop, notify the Dr. who performed your procedure. BLEEDING: If the procedure site on your wrist begins to bleed, do not panic 1. Place 1 or 2 fingers firmly just slightly above the insertion site to stop the bleeding. You may be able to feel your pulse as you hold pressure. 2. Lift your finger after 5 minutes to see if the bleeding has stopped. 3. Once the bleeding has stopped, gently wipe the wrist area clean with a bandage. * If the bleeding from your wrist does not stop after 10 minutes, or if there is a large amount of bleeding or spurting, call 911 (do not drive yourself to the hospital). SKIN IRRITATION: * You may experience some redness and/or swelling in the area where radiation was administered. If any skin irritation occurs, please contact your family physician. FOLLOW UP VISIT: Keep any scheduled doctor appointments. Total Time Total Time Spent Total Time Spent (In Minutes): It required greater than 30 minutes to prepare this patient for discharge. Admit discharge same day Coding Level of Care Code INP/OBS EV SAME DAY LV 3,85MIN Diagnoses Unstable angina I20.0 Dyslipidemia E78.5
[2025-03-08 20:22] VITALS: RESP 16
[2025-03-08 21:56] VITALS: BP 145/83; PULSE 68; TEMP 98.1; O2SAT 97
[2025-03-09] MEDS ORDERED: ATORVASTATIN 20 MG TAB PO SCH (09:00)
[2025-03-09] MEDS ORDERED: ASPIRIN 81 MG ECTAB PO SCH (09:00)
== END 2025-03-08 21:30 | disposition home or self-care (01) | DRG 287 ==
LOC: ED 14:38 → CC 16:08 → INTOOBSV 17:00 → 2S 17:00